=== PATIENT | female | born 1990 | race Caucasian/White ===

== ENCOUNTER 2018-06-22 10:47 | Emergency (ER) | payer MEDICAID, OTHER ==
[~2018-06-22] VITALS: Ht 160 cm; Wt 62.1 kg
[2018-06-22 11:00] VITALS: BP 112/69
--- NOTE | 2018-06-22 11:04 | NUR ---
PT AMBULATED TO ER BED 03
--- NOTE | 2018-06-22 11:08 | NUR ---
C/O RASH TO NECK/BACK X1 WEEK. DENIES SOB, PAIN, ANY OTHER ALLERGIES. REDNESS/SMALL BUMPS NOTED ON NECK AND UPPER BACK. PT STATES IT IS ITCHY BUT IT DOES NOT HURT. DENIES N/V/D; SKIN IS PINK/WARM/DRY; AAOX4 WITH EVEN AND STEADY GAIT; LUNGS CLEAR BL; HR EVEN AND REGULAR;VSS; PATIENT POSITIONED FOR COMFORT; HOB ELEVATED; BEDRAILS UP X1; BED DOWN. ER MD MADE AWARE OF PT STATUS.
--- NOTE | 2018-06-22 12:38 | NUR ---
ERMD AT BEDSIDE
[2018-06-22 12:51] VITALS: BP 110/60
--- NOTE | 2018-06-22 12:51 | NUR ---
Patient discharged with v/s stable. Written and verbal after care instructions given and explained. Patient alert, oriented and verbalized understanding of instructions. Ambulatory with steady gait. All questions addressed prior to discharge. ID band removed. Patient advised to follow up with PMD. Rx of PREDNISONE 20 MG given. Patient educated on indication of medication including possible reaction and side effects. Opportunity to ask questions provided and answered.
== END 2018-06-22 12:51 | disposition home or self-care (01) ==
LOC: MED 10:47
DX: R21 Rash and other nonspecific skin eruption (principal)
CPT/HCPCS: 99283